=== PATIENT | female | born 1995 | race American Indian/Alaskan Native ===

== ENCOUNTER 2018-08-25 19:32 | Emergency (ER) | payer OTHER ==
[2018-08-25 19:49] VITALS: BP 144/83
--- NOTE | 2018-08-25 19:56 | Emergency Department Report ---
Blank Doc - Documentation Documentation: pt presents with lip swelling and itching x 2 days. States swelling went down today but itching still there ACc eval
--- NOTE | 2018-08-25 20:10 | Emergency Department Report ---
Chief Complaint: Dental/Oral Stated Complaint: SWOLLEN IRRITATED LIPS Time Seen by Provider: 08/25/18 19:47 - HPI History of Present Illness: 22-year-old -[place] female presents to the emergency room for irritation to the upper lip 2 days. He denies any fever chills or nausea or vomiting. - ROS Review of Systems: Patient denies any fever chills or nausea no vomiting. Patient reports this a bump on her upper lip - Exam Vital Signs: Vital Signs 08/25/18 08/25/18 19:46 19:47 Temperature 99.6 F 99.6 F Pulse Rate 108 H 106 H Respiratory 18 18 Rate Blood Pressure 144/83 144/83 O2 Sat by Pulse 95 95 Oximetry Physical Exam: Alert and oriented 3. HEENT: PERRL, EOMI oral mucosa moist, patient appears to have a pimple above her lip right under her nose. MSE screening note: Focused history and physical exam performed. Due to findings the following was ordered: I discussed the patient she can get [id number] Abreva. ED Disposition for MSE Clinical Impression: Herpetic lesions of face Disposition: Z-07 MED SCREENING EXAM-LEFT Is pt being admited?: No Does the pt Need Aspirin: No Condition: Stable
== END 2018-08-25 20:00 | disposition left against medical advice (07) ==
LOC: ED 19:32
DX: B00.1 Herpesviral vesicular dermatitis (principal)
CPT/HCPCS: 99281

== ENCOUNTER 2018-11-07 02:18 | Emergency (ER) | payer OTHER ==
[2018-11-07 02:32] VITALS: BP 126/83
[2018-11-07] MEDS ORDERED: TYLENOL PO ONE (03:19)
[2018-11-07] MEDS ORDERED: PYRIDIUM PO ONE (03:19)
[2018-11-07 04:09] LABS: HCG Qualitative,Urine Negative (Negative)
[2018-11-07 04:14] LABS: Bacteria,Urine 1+ /HPF (Negative); Bilirubin,Urine NEG (Negative); Blood,Urine MOD (Negative); Color,Urine Yellow (Yellow); Mucus,Urine FEW /HPF; Protein,Urine <15 mg/dL mg/dL (Negative); Urobilinogen,Urine < 2.0 mg/dL (<2.0)
[2018-11-07] MEDS ORDERED: LEVAQUIN PO ONE (04:31)
[2018-11-07] MEDS ORDERED: REGLAN PO ONE (04:32)
--- NOTE | 2018-11-07 04:53 | Emergency Department Report ---
<NELLIE NOLAN - Last Filed: 11/07/18 04:48> ED Female HPI - General Chief complaint: Urogenital-Female Stated complaint: PAINFUL URINATION Time Seen by Provider: 11/07/18 03:05 Source: patient Mode of arrival: Ambulatory Limitations: No Limitations - History of Present Illness Initial comments: Patient is a A0 23-year-old -[place] female with no past medical history who presents to the ED with complaint of acute onset persistent dysuria, urinary frequency and urgency, hematuria, low back pain and intermittent urinary incontinence for the last 2 days. Patient states that her symptoms got worse about 8 hours ago. Patient denies abdominal pain, vaginal bleeding, vaginal discharge, nausea, vomiting, dizziness, chest pain, shortness of breath, headache, cough or diarrhea. MD Complaint: dysuria, other (Urinary urgency and frequency; Low back pain) -: Sudden, days(s) (2) Location: suprapubic Radiation: non-radiating Severity: severe Severity scale (0 -10): 7 Quality: sharp, burning, aching Consistency: constant Improves with: none Worsens with: urination Are you Now?: No Last Menstrual Period: 10/21/18 EDC: 07/28/19 Associated Symptoms: dysuria, hematuria. denies: vaginal discharge, vaginal bleeding, abdominal pain, nausea/vomiting, fever/chills, headaches, loss of appetite, rash, seizure, shortness of breath, syncope - Related Data Sexually active: Yes : 1 Para: 1 A: 0 Previous Rx's Medication Instructions Recorded Last Taken Type Acetaminophen/Codeine [Tylenol 1 tab PO Q6H PRN #15 tab 08/29/13 Unknown Rx /Codeine # 3 tab] Antipyrine/Benzocaine/Glycerin 2 drops AU Q3H PRN #1 bottle 08/29/13 Unknown Rx [Auralgan Otic Soln] Ciprofloxacin HCl [Ciprofloxacin 500 mg PO BID #20 tablet 08/29/13 Unknown Rx TAB] Neomy/Polymyx B/Hc (Otic) Soln 4 drops OT TID #1 bottle 08/29/13 Unknown Rx [Cortisporin (Otic) Soln] Ibuprofen [Motrin] 800 mg PO Q8HR PRN #20 tablet 11/07/18 Unknown Rx Ondansetron [Zofran Odt] 4 mg PO Q6HR #15 tab.rapdis 11/07/18 Unknown Rx Phenazopyridine [Pyridium] 200 mg PO Q8H PRN #21 tab 11/07/18 Unknown Rx Sulfamethoxazole/Trimethoprim 1 each PO Q12H #20 tablet 11/07/18 Unknown Rx [Bactrim DS TAB] Allergies Allergy/AdvReac Type Severity Reaction Status Date / Time No Known Allergies Allergy Unverified 08/29/13 12:17 ED Review of Systems Constitutional: denies: chills, fever Eyes: denies: eye pain, eye discharge, vision change ENT: denies: ear pain, throat pain Respiratory: denies: cough, shortness of breath, wheezing Cardiovascular: denies: chest pain, palpitations Endocrine: no symptoms reported Gastrointestinal: abdominal pain (suprapubic pressure). denies: nausea, diarrhea Genitourinary: urgency, dysuria, frequency, hematuria. denies: discharge Musculoskeletal: back pain (lower back pain). denies: joint swelling, arthralgia Skin: denies: rash, lesions Neurological: denies: headache, weakness, paresthesias Psychiatric: denies: anxiety, depression Hematological/Lymphatic: denies: easy bleeding, easy bruising ED Past Medical Hx - Past Medical History Previous Medical History?: No - Surgical History Past Surgical History?: Yes Additional Surgical History: Breast Reduction, , Lower Back - Social History Smoking Status: Former Smoker Substance Use Type: None - Medications Home Medications: Home Medications Medication Instructions Recorded Confirmed Last Taken Type Acetaminophen/Codeine [Tylenol 1 tab PO Q6H PRN #15 tab 08/29/13 Unknown Rx /Codeine # 3 tab] Antipyrine/Benzocaine/Glycerin 2 drops AU Q3H PRN #1 bottle 08/29/13 Unknown Rx [Auralgan Otic Soln] Ciprofloxacin HCl [Ciprofloxacin 500 mg PO BID #20 tablet 08/29/13 Unknown Rx TAB] Neomy/Polymyx B/Hc (Otic) Soln 4 drops OT TID #1 bottle 08/29/13 Unknown Rx [Cortisporin (Otic) Soln] Ibuprofen [Motrin] 800 mg PO Q8HR PRN #20 tablet 11/07/18 Unknown Rx Ondansetron [Zofran Odt] 4 mg PO Q6HR #15 tab.rapdis 11/07/18 Unknown Rx Phenazopyridine [Pyridium] 200 mg PO Q8H PRN #21 tab 11/07/18 Unknown Rx Sulfamethoxazole/Trimethoprim 1 each PO Q12H #20 tablet 11/07/18 Unknown Rx [Bactrim DS TAB] ED Physical Exam - General Limitations: No Limitations General appearance: alert, in no apparent distress - Head Head exam: Present: atraumatic, normocephalic, normal inspection - Eye Eye exam: Present: normal appearance, PERRL, EOMI - ENT ENT exam: Present: normal exam, normal orophraynx, mucous membranes moist, TM's normal bilaterally, normal external ear exam - Neck Neck exam: Present: normal inspection, full ROM - Respiratory Respiratory exam: Present: normal lung sounds bilaterally. Absent: respiratory distress, wheezes, rales, rhonchi, chest wall tenderness, accessory muscle use, decreased breath sounds - Cardiovascular Cardiovascular Exam: Present: regular rate, normal rhythm, normal heart sounds. Absent: systolic murmur, diastolic murmur, rubs, gallop - GI/Abdominal GI/Abdominal exam: Present: soft, normal bowel sounds. Absent: tenderness, guarding, rebound, hyperactive bowel sounds, hypoactive bowel sounds, organomegaly, mass - Rectal Rectal exam: Present: deferred - Extremities Exam Extremities exam: Present: normal inspection, full ROM, normal capillary refill - Back Exam Back exam: Present: normal inspection, tenderness, CVA tenderness (R), CVA tenderness (L), muscle spasm, paraspinal tenderness (lumbosacral paraspinal tenderness). Absent: vertebral tenderness - Neurological Exam Neurological exam: Present: alert, oriented X3, CN II-XII intact, normal gait, reflexes normal - Psychiatric Psychiatric exam: Present: normal affect, normal mood - Skin Skin exam: Present: warm, dry, intact, normal color. Absent: rash ED Course - Reevaluation(s) Reevaluation #1: 11/07/18 04:55 Patient is alert and oriented 3 and is not in distress with normal vital signs. Urinalysis shows significant urinary tract infection. Patient was treated the ED for pain and also given an initial dose of antibiotics by mouth, and patient discharged home on pain medications, antiemetics and antibiotics and advised follow-up with her primary care physician in 7-10 days for reevaluation. Patient was advised to return to the ED immediately if symptoms get worse. ED Medical Decision Making - Medical Decision Making Patient is alert and oriented 3 and is not in distress with normal vital signs. Urinalysis shows significant urinary tract infection. Patient was treated the ED for pain and also given an initial dose of antibiotics by mouth, and patient discharged home on pain medications, antiemetics and antibiotics and advised follow-up with her primary care physician in 7-10 days for reevaluation. Patient was advised to return to the ED immediately if symptoms get worse. - Differential Diagnosis acute UTI; Muscle spasm of back; Kidney stones; STD ED Disposition Clinical Impression: Dysuria, Acute urinary tract infection, Hematuria due to acute cystitis Disposition: TO HOME OR SELFCARE Is pt being admited?: No Does the pt Need Aspirin: No Condition: Stable Instructions: Urinary Tract Infection in Women (ED), Acute Hematuria (ED), Dysuria (ED) Additional Instructions: Take medications with food, drink plenty of fluid and follow up with her primary care physician in 7-10 days for reevaluation. Return to the ED immediately if symptoms get worse. Prescriptions: Sulfamethoxazole/Trimethoprim [Bactrim DS TAB] 1 each PO Q12H #20 tablet Ibuprofen [Motrin] 800 mg PO Q8HR PRN #20 tablet PRN Reason: Pain , Severe (7-10) Phenazopyridine [Pyridium] 200 mg PO Q8H PRN #21 tab PRN Reason: Pain , Severe (7-10) Ondansetron [Zofran Odt] 4 mg PO Q6HR #15 tab.rapdis Forms: Accompanied Note, Work/School Release Form(ED) Time of Disposition: 04:58 Print Language: TAJIK <VIDAL SCOTT - Last Filed: 11/07/18 05:30> ED Review of Systems ROS: Stated complaint: PAINFUL URINATION Other details as noted in HPI ED Course Vital Signs 11/07/18 02:30 Temperature 98.0 F Pulse Rate 75 Respiratory 18 Rate Blood Pressure 126/83 O2 Sat by Pulse 98 Oximetry ED Medical Decision Making - Lab Data Vital Signs 11/07/18 02:30 Temperature 98.0 F Pulse Rate 75 Respiratory 18 Rate Blood Pressure 126/83 O2 Sat by Pulse 98 Oximetry Labs 11/07/18 03:33 Urine Color Yellow Urine Turbidity Slightly-cloudy Urine pH 6.0 Ur Specific [place] 1.011 Urine Protein <15 mg/dl Urine Glucose (UA) Neg Urine Ketones 20 Urine Blood Mod Urine Nitrite Neg Ur Reducing Substances Not Reportable Urine Bilirubin Neg Urine Ictotest Not Reportable Urine Urobilinogen < 2.0 Ur Leukocyte Esterase Lg Urine WBC (Auto) 44.0 H Urine RBC (Auto) 6.0 U Epithel Cells (Auto) 2.0 Urine Bacteria (Auto) 1+ Ur Transition Epith Cell 2 Urine Mucus Few Urine HCG, Qual Negative Critical care attestation.: If time is entered above; I have spent that time in minutes in the direct care of this critically ill patient, excluding procedure time. ED Disposition Is pt being admited?: No Does the pt Need Aspirin: No
== END 2018-11-07 05:29 | disposition home or self-care (01) ==
LOC: ED 02:18
DX: N30.01 Acute cystitis with hematuria (principal); Z79.899 Other long term (current) drug therapy
CPT/HCPCS: 81001; 81025; 87076; 87086; 87186

== ENCOUNTER 2020-05-05 20:28 | Emergency (ER) | payer OTHER ==
[2020-05-05 21:33] VITALS: BP 136/89
== END 2020-05-05 23:10 | disposition left against medical advice (07) ==
LOC: ED 20:28
DX: R51.9 Headache, unspecified (principal); Z53.21 Procedure and treatment not carried out due to patient leaving prior to being seen by health care provider